=== PATIENT | male | born 1955 | race Asian ===

== ENCOUNTER 2023-12-09 19:27 | Emergency (ER) | payer OTHER ==
[2023-12-09 19:55] VITALS: BP 133/78; PULSE 88; RESP 18; TEMP 98.7; BMI 22.8
[2023-12-09] MEDS ORDERED: DIPHTH,PERTUSS(ACELL),TET 0.5 ML DISP.SYRIN IM ONE (20:07)
[2023-12-09] MEDS: DIPHTH,PERTUSS(ACELL),TET 0.5 ML DISP.SYRIN IM ONE (20:37)
== END 2023-12-09 22:01 | disposition home or self-care (01) ==
LOC: FER 19:27
PROC: 3E0234Z Introduction of Serum, Toxoid and Vaccine into Muscle, Percutaneous Approach (ICD-10-PCS; principal; 2023-12-09)
DX: S00.83XA Contusion of other part of head, initial encounter (principal); S20.212A Contusion of left front wall of thorax, initial encounter; R91.8 Other nonspecific abnormal finding of lung field; W01.198A Fall on same level from slipping, tripping and stumbling with subsequent striking against other object, initial encounter
CPT/HCPCS: 70450-TC; 70486-TC; 71250-TC; 90471; 90715; 99284-25